=== PATIENT | male | born 1980 | race Hispanic/Latino ===

== ENCOUNTER → 2019-04-29 | Outpatient (CLI) | payer BC ==
--- NOTE | 2019-04-29 12:10 | Diagnostic Imaging Report ---
HISTORY: Testicular pain, varicocele COMPARISON : None COMMENT : Ultrasound examination of the genitalia was performed. In addition, Color Doppler and spectral analysis of the testicles were also obtained. There are no prior films available for comparison. The right epididymal head measures 11 x 9 x 8 mm and appears unremarkable. The right testis measures 4.6 x 2.3 x 3.0 cm and appears unremarkable. Normal flow is identified on color Doppler. The left epididymal head measures 12 x 6 x 7 mm and appears unremarkable. The left testis measures 3.7 x 1.8 x 2.6 cm and appears unremarkable. Normal flow is identified on color Doppler. There is no evidence of hydroceles or varicoceles. IMPRESSION : Unremarkable testicular ultrasound. No evidence of varicocele. Signed by: Nathan Cardenas MD on 04/29/2019 12:07 PM
== END ==
LOC: EDBD → US 10:28
PROVIDERS: ATTEND Specialist
DX: N50.812 Left testicular pain (principal); N50.811 Right testicular pain
CPT/HCPCS: 76870; 93976